=== PATIENT | male | born 1935 | race Caucasian/White ===

== ENCOUNTER 2017-01-17 20:18 | Inpatient (IN) ==
[2017-01-17] MEDS ORDERED: ONDANSETRON 4 MG/2 ML VIAL IV STA (20:49)
[2017-01-17] MEDS ORDERED: PANTOPRAZOLE 40 MG VIAL IV STA (20:49)
[2017-01-17] MEDS ORDERED: METOCLOPRAMIDE 10 MG/2 ML VIAL IV STA (20:49)
--- NOTE | 2017-01-17 20:55 | Emergency Department Note ---
Arrival - Arrival Chief Complaint: GI Bleed/Rectal ED Nursing Triage Note: C/O Lower GI bleeding-onset 0430 this morning. Pt was seen at [facility] and was sent for further evlauation. pt reports having multiple episodes of dark red stools/diarrhea. Mode of Arrival: Stretcher Limitations: No Limitations Source: Patient Time Seen by Provider: 01/17/17 20:48 - History of Present Illness HPI Narrative: This 81-year-old white male presents with a history of awakening at 430 this morning to of bright red bloody bowel movement followed by repeated small movements of similar consistency. He was seen at [facility] where he was further evaluated and because of long-standing lower GI bleed problems, Dr. Wilder, GI on-call was consulted. He advised transfer here for admission to the hospitalist service and they will see in consult. Currently during his interview he is having a bloody BM. Notable lab at [place] revealed a hematocrit of 43. Of note he has had significant diffuse abdominal pain associated with nausea, vomiting, and heartburn for the past several days. He denies any complaints of chest pain or shortness of breath in association with this. Despite this problem the patient has stable vital signs and is in no medical distress at this moment. Onset (ago): hour(s) (Patient presents 18 hours post onset of symptoms) Allergies/Adverse Reactions: Allergies Allergy/AdvReac Type Severity Reaction Status Date / Time codeine Allergy Unknown Unknown/Unable Verified 09/07/15 12:19 to obtain levofloxacin [From Levaquin] Allergy Unknown Unknown/Unable Verified 09/07/15 12 :19 to obtain Home Medications: Home Medications Medication Instructions Recorded Confirmed Type Digoxin 0.5 tablet PO DAILY 06/15/15 01/17/17 History Nitroglycerin Sl Tab [Nitrostat] 0.4 mg SL Q5M PRN 06/15/15 01/17/17 History Metoprolol Succinate Xl [Toprol Xl] 50 mg PO DAILY #30 tablet 06/17/15 01/17/17 Rx Methenamine Mandelate 1 gm PO BID 01/25/16 01/17/17 History Rosuvastatin [Crestor] 10 mg PO BEDTIME 01/25/16 01/17/17 History Pantoprazole Tab [Protonix Tab] 40 mg PO DAILY 08/24/17 08/24/17 History Review of System - Review of System 12 point system: reviewed and no additional remarkable complaints except as stated - Review of System Constitutional: Present: as per HPI Respiratory: Present: as per HPI Cardiovascular: Present: as per HPI Gastrointestinal: Present: as per HPI Medical,Surgical,& Family Hx - Medical History Cardio: History of: Cardiac Dysrhythmia (afib), CHF, CAD, Hypertension, [place], Pacemaker, Valvular Heart Disease, Cardiovascular Problems Neurology: No history of: Seizures HEENT: History of: Dental Problems Endocrine: History of: Dyslipidemia Respiratory: History of: Pneumonia Renal: History of: Renal Problems (hematuria) Genitourinary: History of: Prostate Problems (bph, cancer), Recurring Urinary Tract Infections Gastrointestinal: History of: GERD, Gastrointestinal Bleed, Hemorrhoids, Liver Problems, Polyps, Ulcerative Colitis, GI Problems (angiodysplagia of intestine) Musculoskeletal: History of: Back/Neck Problems (back surgery), Musculoskeletal Problems (arthritis) Hematology: History of: Anemia, Blood Disorders (thrombocytopenia) No history of: Blood Transfusion Reaction Other: History of: Cancer (prostate) No history of: Anesthesia Reactions - Surgical History Cardiac Surgeries: Sugical HX of: Cardiac Catheterization, Cardiac Surgery Patient Denies: Carotid Endarterectomy Thoracic Surgeries: Patient denies;: Organ Transplant HEENT Surgeries: Surgical HX of: Eye Surgery (cataracts) Patient denies: Carotid Endarterectomy Abdominal Surgeries: Surgical HX of: Colonoscopy, EGD, Hernia Repair Patient denies: Abdominal Surgery, Appendectomy, Cholecystectomy Reproductive Surgeries: Surgical HX of;: Prostate Surgery (prostatectomy) Orthopedic Surgeries: Surgical HX of;: Orthopedic Surgery (hand) - Social History Smoking Status: Former smoker Frequency of Alcohol Use: None Type of Drug Use: None Exam Physical Examination: GENERAL: Well developed, well nourished elderly white male in no acute distress. HEENT: Normocephalic. No trauma. Moist mucous membranes. EOMI. PERRLA. ENT NML NECK: Supple. No adenopathy. CARDIAC: Regular. No murmurs. Heart rate 60 CHEST: Clear to auscultation. No respiratory distress. O2 sat 97% ABDOMEN: Soft. Diffusely tender with hyperactive bowel sounds. red blood in bedside commode. EXTREMITIES: No trauma. Normal ROM. No pedal edema. SKIN: No diaphoresis. No rash. NEURO: Alert. Neuro intact no focal deficits. Vital Signs: Vital Signs Temperature 98.5 F 01/17/17 20:24 Pulse Rate 60 01/17/17 20:24 Respiratory Rate 16 01/17/17 20:24 Blood Pressure 144/74 01/17/17 20:24 O2 Sat by Pulse Oximetry 97 01/17/17 20:24 Course - Reevaluation(s) Reevaluation #1: Patient for admission and consultation with Dr. Livingston in the morning - Consultations Consultation #1: Discussed with hospitalist service who will admit for further evaluation treatment. Results - Labs Labs: Lab per [facility]: White blood cell count 10,700, hematocrit 43, sodium 144, potassium 4.8, BUN 17, creatinine 1.0, BNP 797 Disposition Clinical Impression: Lower GI bleed Case discussed with: patient Disposition: Still a Patient Condition: Guarded Time of Disposition: 21:00
[2017-01-17 21:43] LABS: Basophils % 0.2 % (0.0-0.8); Hematocrit 43.3 VOL% (42.0-52.0); Hemoglobin 13.4 GM/DL (14.0-18.0); Immature Granulocytes % 0.6 %; Immature Granulocytes Absolute 0.07 #; Lymphocytes # 0.8 10*3/uL (1.4-4.0); Mean Corpuscular HGB Conc 30.9 GM/DL (32-36); Mean Corpuscular Hemoglobin 27 PG (27-34); Mean Corpuscular Volume 88.5 FL (87-102); Mean Platelet Volume 11.3 FL (9.6-12.0); Monocytes # 0.9 10*3/uL (0.11-0.8); Monocytes % 7.5 % (1.7-12.7); Neutrophils # 10.1 10*3/uL (1.4-7.4); Neutrophils % 84.7 % (38.7-73.9); Platelet Count 143 T/CUMM (130-400); Red Blood Count 4.89 MC/CUMM (3.8-5.5); Red Cell Distribution Width 14.5 % (9.3-17.3); White Blood Count 11.9 T/CUMM (4-12)
[2017-01-17 22:04] LABS: Troponin I Only < 0.015 NG/ML (0.00-0.045)
[2017-01-17] MEDS ORDERED: METOCLOPRAMIDE 10 MG/2 ML VIAL ONE (22:16)
[2017-01-17] MEDS ORDERED: PANTOPRAZOLE 40 MG VIAL IV ONE (22:16)
[2017-01-17] MEDS ORDERED: ONDANSETRON 4 MG/2 ML VIAL ONE (22:17)
[2017-01-17] MEDS ORDERED: ACETAMINOPHEN 325 MG TABLET PO PRN (22:55)
--- NOTE | 2017-01-17 23:04 | Hospitalist History & Physical ---
Assessment and Plan (1) GI bleeding Status: Acute Current Visit: Yes (2) Hypertension Status: Acute Current Visit: Yes (3) History of coronary artery disease Status: Acute Current Visit: Yes (4) Paroxysmal atrial fibrillation Status: Acute Assessment and plan: Our plan for this patient will be admitting him to our service. Patient will be placed on a monitored bed. Patient appears very stable and does not require ICU admission. Will monitor H&H every 6 hours and if the need arises we will transfuse. Continue other home meds as appropriate. Will consult Dr. Livingston who is seen him in the past. Reevaluate patient in the morning and adjust plans as appropriate Current Visit: No History of Present Illness Chief complaint: GI bleed History of present illness: Mr. Gupta is a 81 year old male with past medical history significant for GI bleeds, coronary artery disease, atrial fibrillation and pacemaker placement who is in his normal state of health until this morning. Patient developed abdominal cramps and then he started having nausea vomiting and diarrhea. A little while later patient started passing blood through his stool. Patient had several bloody bowel movements. Patient went out to [facility] for further evaluation we will subsequently received him in the emergency room from [facility]. I was consulted to admit him to the emergency room Home Medications Medication Instructions Recorded Confirmed Type Digoxin 0.5 tablet PO DAILY 06/15/15 01/17/17 History Nitroglycerin Sl Tab [Nitrostat] 0.4 mg SL Q5M PRN 06/15/15 01/17/17 History Metoprolol Succinate Xl [Toprol Xl] 50 mg PO DAILY #30 tablet 06/17/15 01/17/17 Rx Methenamine Mandelate 1 gm PO BID 01/25/16 01/17/17 History Rosuvastatin [Crestor] 10 mg PO BEDTIME 01/25/16 01/17/17 History Pantoprazole Tab [Protonix Tab] 40 mg PO DAILY 01/17/17 01/17/17 History Allergies Allergy/AdvReac Type Severity Reaction Status Date / Time codeine Allergy Unknown Unknown/Unable Verified 09/07/15 12:19 to obtain levofloxacin [From Levaquin] Allergy Unknown Unknown/Unable Verified 09/07/15 12 :19 to obtain Medical,Surgical,& Family Hx - Medical History Cardio: History of: Cardiac Dysrhythmia (afib), CHF, CAD, Hypertension, [place], Pacemaker, Valvular Heart Disease, Cardiovascular Problems Neurology: No history of: Seizures HEENT: History of: Dental Problems Endocrine: History of: Dyslipidemia Respiratory: History of: Pneumonia Renal: History of: Renal Problems (hematuria) Genitourinary: History of: Prostate Problems (bph, cancer), Recurring Urinary Tract Infections Gastrointestinal: History of: GERD, Gastrointestinal Bleed, Hemorrhoids, Liver Problems, Polyps, Ulcerative Colitis, GI Problems (angiodysplagia of intestine) Musculoskeletal: History of: Back/Neck Problems (back surgery), Musculoskeletal Problems (arthritis) Hematology: History of: Anemia, Blood Disorders (thrombocytopenia) No history of: Blood Transfusion Reaction Other: History of: Cancer (prostate) No history of: Anesthesia Reactions - Surgical History Cardiac Surgeries: Sugical HX of: Cardiac Catheterization, Cardiac Surgery Patient Denies: Carotid Endarterectomy Thoracic Surgeries: Patient denies;: Organ Transplant HEENT Surgeries: Surgical HX of: Eye Surgery (cataracts) Patient denies: Carotid Endarterectomy Abdominal Surgeries: Surgical HX of: Colonoscopy, EGD, Hernia Repair Patient denies: Abdominal Surgery, Appendectomy, Cholecystectomy Reproductive Surgeries: Surgical HX of;: Prostate Surgery (prostatectomy) Orthopedic Surgeries: Surgical HX of;: Orthopedic Surgery (hand) - Family History Family History: Reports;: Family Heart Disease - Social History Smoking Status: Former smoker Frequency of Alcohol Use: None Type of Drug Use: None 12 point system: reviewed and no additional remarkable complaints except as stated Exam - Constitutional Vitals: Period Temp Pulse Resp BP Sys/Avalos Pulse Ox Last 24 Hr 98.4 F-98.5 F 60-60 16-16 144-144/74-74 97 General appearance: normal weight - Head Head exam: Present: normal inspection - Eye Eye exam: Present: EOMI Pupils: Present: NADIA - ENT ENT exam: Present: normal exam - Neck Neck exam: Present: normal inspection - Respiratory Respiratory exam: Present: clear to auscultation bilaterally - Cardiovascular Cardiovascular exam: Present: regular rate and rhythm - GI/Abdominal GI/Abdominal exam: Present: normal bowel sounds, tenderness (Mild diffuse noted) - Extremities Exam Extremities exam: Present: normal inspection - Back Exam Back exam: Present: normal inspection - Neurological Exam Neurological exam: Present: alert, oriented X3 - Psychiatric Psychiatric exam: Present: normal affect, normal mood Results - Labs CBC & BMP: 08/24/17 21:34 Labs: Labs from outside facility INR 1.3 PTT 32.5 urinalysis negative white blood cell count 10.78 hemoglobin 13.2 hematocrit 43.4 platelets 130 glucose 100 BUN 17 creatinine 1.0 sodium 144 potassium 4.8 chloride 29 calcium 8.7
--- NOTE | 2017-01-18 02:19 | EKG Report ---
Stationary ECG Study [facility] ER Test Date: 01/17/2017 9:25:17 PM Pat Name: PEDRO LUIS NEGRON Department: Room: 545 Gender: M Drip Pumper: : 1935 Requested by: Tanmay Cho Order Number: [id number] Holly MD: ADRIANA RANDALL Intervals [place] Rate: 60 P: 171 ME: 179 QRS: -79 QRSD: 160 T: 93 QT: 468 QTc: 468 Interpretive Statements ELECTRONIC ATRIAL PACEMAKER ELECTRONIC VENTRICULAR PACEMAKER ABNORMAL RHYTHM ECG Electronically Signed On 01-18-17 17:11:32 CDT by ADRIANA RANDALL [email or web address]
[2017-01-18 05:52] LABS: Hematocrit 40.8 VOL% (42.0-52.0); Hemoglobin 12.6 GM/DL (14.0-18.0)
[2017-01-18] MEDS: ONDANSETRON 4 MG/2 ML VIAL IV PRN (09:13)
[2017-01-18] MEDS: DIGOXIN 0.25 MG TABLET PO SCH (09:15)
[2017-01-18] MEDS: PANTOPRAZOLE 40 MG VIAL IV SCH ×2 (09:15→20:15)
[2017-01-18] MEDS: METOPROLOL SUCCINATE XL 50 MG TABLET PO SCH (09:16)
[2017-01-18] MEDS: METHENAMINE HIPPURATE 1 GM TABLET PO SCH ×2 (09:16→20:15)
[2017-01-18 09:55] LABS: Hematocrit 40.5 VOL% (42.0-52.0); Hemoglobin 12.5 GM/DL (14.0-18.0)
--- NOTE | 2017-01-18 12:10 | Gastrointestinal Consult Note ---
<ArashOlga Evangelist - Last Filed: 01/18/17 12:05> Assessment and Plan (1) GI bleeding Status: Acute Assessment and plan: 01/18-sudden onset of bright red rectal bleeding with clots with and without stool with associated lower abdominal pain and cramping on yesterday. No prior history of rectal GI bleeding in the past. Last colonoscopy approximately 1 year ago with notation of diverticulosis and polyp removal. 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 H&H is currently stable. Continue to monitor serial H&H and transfuse as necessary. Clear liquid diet. Abdominal x-ray is pending at present time. Plan an addendum to followed by Dr. Wilder (online merchandising manager for Dr. Livingston). Current Visit: Yes History of Present Illness Chief complaint: Rectal bleed History of present illness: Mr. Gupta is a 81 year old male who was admitted to the hospital following onset of bright red rectal bleeding on yesterday. Patient is a fairly good historian and his is at bedside as well. Information obtained from patient interview as well as chart review. Patient is a prior history of CAD, atrial fibrillation and pacemaker placement in the past. He is not on anticoagulants at this time. Patient states that on yesterday morning he began not feeling well with some lower abdominal pain and cramping he also had onset of nausea but denies any vomiting at that time. He went to the bathroom with urge to defecate and had a large liquid stool that was mixed in with a large amount of bright red blood. Patient states that he had too numerous to count stools following this, with each 1 of them containing bright red blood and at times clots. He also states that at times that he did have rectal bleeding without a bowel movement. Patient states he has had continued lower abdominal pain and cramping since that time that is not relieved by defecation. He presented to [place] [facility] emergency room and at that time he was referred to our facility. Patient has no prior history of GI bleeding like this in the past. 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 Patient is usually followed by Dr. Livingston however he is on vacation at this time. Patient's last known endoscopy was an EGD in August of last year with findings of gastritis. His last colonoscopy was in January of last year with findings of diverticulosis, polyp removal (pathology of tubular adenoma). He is noted to have a documented history of recurring anemia with iron replacement therapy in the past. H&H is currently stable at 12/40 and he has not required blood transfusion at this time. Patient states that he has had diverticulitis in the past and this pain is nothing similar to that. Home Medications Medication Instructions Recorded Confirmed Type Digoxin 0.5 tablet PO DAILY 06/15/15 01/18/17 History Nitroglycerin Sl Tab [Nitrostat] 0.4 mg SL Q5M PRN 06/15/15 01/18/17 History Metoprolol Succinate Xl [Toprol Xl] 50 mg PO DAILY #30 tablet 06/17/15 01/18/17 Rx Methenamine Mandelate 1 gm PO BID 01/25/16 01/18/17 History Rosuvastatin [Crestor] 10 mg PO BEDTIME 01/25/16 01/18/17 History Pantoprazole Tab [Protonix Tab] 40 mg PO DAILY 01/17/17 01/18/17 History Allergies Allergy/AdvReac Type Severity Reaction Status Date / Time codeine Allergy Unknown Unknown/Unable Verified 09/07/15 12:19 to obtain levofloxacin [From Levaquin] Allergy Unknown Unknown/Unable Verified 09/07/15 12 :19 to obtain Medical,Surgical,& Family Hx - Medical History Cardio: History of: Cardiac Dysrhythmia (afib), CHF, CAD, Hypertension, [place], Pacemaker, Valvular Heart Disease, Cardiovascular Problems Neurology: No history of: Seizures HEENT: History of: Dental Problems Endocrine: History of: Dyslipidemia Respiratory: History of: Pneumonia Renal: History of: Renal Problems (hematuria) Genitourinary: History of: Prostate Problems (bph, cancer), Recurring Urinary Tract Infections Gastrointestinal: History of: GERD, Gastrointestinal Bleed, Hemorrhoids, Liver Problems, Polyps, Ulcerative Colitis, GI Problems (angiodysplagia of intestine) Musculoskeletal: History of: Back/Neck Problems (back surgery), Musculoskeletal Problems (arthritis) Hematology: History of: Anemia, Blood Disorders (thrombocytopenia) No history of: Blood Transfusion Reaction Other: History of: Cancer (prostate) No history of: Anesthesia Reactions - Surgical History Cardiac Surgeries: Sugical HX of: Cardiac Catheterization, Cardiac Surgery Patient Denies: Carotid Endarterectomy Thoracic Surgeries: Patient denies;: Organ Transplant HEENT Surgeries: Surgical HX of: Eye Surgery (cataracts) Patient denies: Carotid Endarterectomy Abdominal Surgeries: Surgical HX of: Colonoscopy, EGD, Hernia Repair Patient denies: Abdominal Surgery, Appendectomy, Cholecystectomy Reproductive Surgeries: Surgical HX of;: Prostate Surgery (prostatectomy) Orthopedic Surgeries: Surgical HX of;: Orthopedic Surgery (hand) - Family History Family History: Reports;: Family Heart Disease - Social History Smoking Status: Former smoker Frequency of Alcohol Use: None Type of Drug Use: None 12 point system: reviewed and no additional remarkable complaints except as stated - Constitutional Constitutional: Present: as per HPI - EENT Eyes: Present: as per HPI Ears: Present: as per HPI Nose, mouth and throat: Present: as per HPI - Cardiovascular Cardiovascular: Present: as per HPI - Respiratory Respiratory: Present: as per HPI - Gastrointestinal Gastrointestinal: Present: as per HPI, abdominal pain, cramping, diarrhea, hematochezia - Genitourinary Genitourinary: Present: as per HPI - Musculoskeletal Musculoskeletal: Present: as per HPI - Neurological Neurological: Present: as per HPI - Psychiatric Psychiatric: Present: as per HPI - Endocrine Endocrine: Present: as per HPI - Hematologic/Lymphatic Hematologic/Lymphatic: Present: as per HPI Exam - Constitutional Vitals: Period Temp Pulse Resp BP Sys/Avalos Pulse Ox Last 24 Hr 97.4 F-98.5 F 60-101 16-18 137-157/69-89 96-97 General appearance: normal weight, no acute distress - Head Head exam: Present: normal inspection, normocephalic - Eye Eye exam: Present: other (Lids and conjunctivae are unremarkable). Absent: scleral icterus - ENT ENT exam: Present: normal exam, normal oropharynx - Neck Neck exam: Present: normal inspection - Respiratory Respiratory exam: Present: clear to auscultation bilaterally. Absent: rales, rhonchi, wheezes - Cardiovascular Cardiovascular exam: Present: regular rate and rhythm. Absent: diastolic murmur , JVD, systolic murmur - GI/Abdominal GI/Abdominal exam: Present: normal bowel sounds, tenderness (Right and left lower quadrant), soft. Absent: ascites, distended, mass, organomegaly - Extremities Exam Extremities exam: Present: normal inspection, full ROM - Back Exam Back exam: Present: normal inspection - Neurological Exam Neurological exam: Present: alert, oriented X3 - Psychiatric Psychiatric exam: Present: normal affect, normal mood - Skin Skin exam: Present: normal color, warm, dry Results - Labs CBC & BMP: 01/18/17 09:49 Lab Results: I have reviewed the past 24 hour labs <Edilson Wilder - Last Filed: 01/18/17 14:48> History of Present Illness Chief complaint: 3030 History of present illness: Mr. Gupta is a 81 year old male Exam - Constitutional Vitals: Period Temp Pulse Resp BP Sys/Avalos Pulse Ox Last 24 Hr 97.4 F-98.5 F 59-101 16-18 109-157/62-89 92-97 Results - Labs CBC & BMP: 01/18/17 09:49
[2017-01-18 12:31] LABS: INR 1.3; PT Patient Result 13.5 SECS
[2017-01-18] MEDS: SODIUM CHLORIDE 0.45% 1,000 ML IV SCH (13:20)
--- NOTE | 2017-01-18 13:27 | XRay Report ---
Abdomen, 2 views History is severe abdominal pain and diarrhea Several scattered air-filled loops small bowel measure up to 2.2 cm with scattered air-fluid levels. Small amount of air present in the colon No free air or organomegaly is seen Mild vascular calcifications present Impression: Scattered nonspecific air-fluid levels most likely mild ileus or gastroenteritis PROCEDURE INTERPRETED AT [facility] DEPARTMENT OF RADIOLOGY Final Report Signed by: Dr. Cristina Amaya
[2017-01-18] MEDS: HYDROCORTISONE 2.5% RECTAL CREAM 30 GM TUBE TOP SCH ×3 (13:47→20:18)
--- NOTE | 2017-01-18 15:25 | General Surgery Consult Note ---
Assessment and Plan (1) Abdominal pain Status: Acute Assessment and plan: I agree with CT scan of the abdomen and pelvis. The patient has a history of diverticulitis. We will place the patient on IV antibiotics tonight and a CT scan has been ordered for tomorrow. I will be around this weekend and rounding on the patient. There are no indications for operative intervention at this time today. Current Visit: Yes History of Present Illness Chief complaint: Abdominal pain with bloody diarrhea History of present illness: Mr. Gupta is a 81 year old male with a history of diverticular disease who was transferred here from [facility] for bloody diarrhea. His hemoglobins have been stable here. The patient denies recent antibiotic use. He has been hospitalized for diverticulitis before but this was many years ago. He did not require surgery. He comes in with abdominal pain mostly in the left lower quadrant and associated nausea and vomiting of nonbilious and nonbloody emesis. He states that his bowel movements have been bloody for the last day he has been having 4-5 bowel movements daily for the last 2 days. Again his abdominal pain is better since she has been in the hospital. Home Medications Medication Instructions Recorded Confirmed Type Digoxin 0.5 tablet PO DAILY 06/15/15 01/18/17 History Nitroglycerin Sl Tab [Nitrostat] 0.4 mg SL Q5M PRN 06/15/15 01/18/17 History Metoprolol Succinate Xl [Toprol Xl] 50 mg PO DAILY #30 tablet 06/17/15 01/18/17 Rx Methenamine Mandelate 1 gm PO BID 01/25/16 01/18/17 History Rosuvastatin [Crestor] 10 mg PO BEDTIME 01/25/16 01/18/17 History Pantoprazole Tab [Protonix Tab] 40 mg PO DAILY 01/17/17 01/18/17 History Allergies Allergy/AdvReac Type Severity Reaction Status Date / Time codeine Allergy Unknown Unknown/Unable Verified 09/07/15 12:19 to obtain levofloxacin [From Levaquin] Allergy Unknown Unknown/Unable Verified 09/07/15 12 :19 to obtain Medical,Surgical,& Family Hx - Medical History Cardio: History of: Cardiac Dysrhythmia (afib), CHF, CAD, Hypertension, FL, Pacemaker, Valvular Heart Disease, Cardiovascular Problems Neurology: No history of: Seizures HEENT: History of: Dental Problems Endocrine: History of: Dyslipidemia Respiratory: History of: Pneumonia Renal: History of: Renal Problems (hematuria) Genitourinary: History of: Prostate Problems (bph, cancer), Recurring Urinary Tract Infections Gastrointestinal: History of: GERD, Gastrointestinal Bleed, Hemorrhoids, Liver Problems, Polyps, Ulcerative Colitis, GI Problems (angiodysplagia of intestine) Musculoskeletal: History of: Back/Neck Problems (back surgery), Musculoskeletal Problems (arthritis) Hematology: History of: Anemia, Blood Disorders (thrombocytopenia) No history of: Blood Transfusion Reaction Other: History of: Cancer (prostate) No history of: Anesthesia Reactions - Surgical History Cardiac Surgeries: Sugical HX of: Cardiac Catheterization, Cardiac Surgery Patient Denies: Carotid Endarterectomy Thoracic Surgeries: Patient denies;: Organ Transplant HEENT Surgeries: Surgical HX of: Eye Surgery (cataracts) Patient denies: Carotid Endarterectomy Abdominal Surgeries: Surgical HX of: Colonoscopy, EGD, Hernia Repair Patient denies: Abdominal Surgery, Appendectomy, Cholecystectomy Reproductive Surgeries: Surgical HX of;: Prostate Surgery (prostatectomy) Orthopedic Surgeries: Surgical HX of;: Orthopedic Surgery (hand) - Family History Family History: Reports;: Family Heart Disease - Social History Smoking Status: Former smoker Frequency of Alcohol Use: None Type of Drug Use: None - Constitutional Constitutional: Present: as per HPI - EENT Nose, mouth and throat: Present: as per HPI - Cardiovascular Cardiovascular: Present: as per HPI - Respiratory Respiratory: Present: as per HPI - Gastrointestinal Gastrointestinal: Present: as per HPI - Genitourinary Genitourinary: Present: as per HPI - Musculoskeletal Musculoskeletal: Present: as per HPI - Neurological Neurological: Present: as per HPI - Endocrine Endocrine: Present: as per HPI Hematologic/Lymphatic: Present: as per HPI Exam - Constitutional Vitals: Period Temp Pulse Resp BP Sys/Avalos Pulse Ox Last 24 Hr 97.4 F-98.5 F 59-101 16-18 109-157/62-89 92-97 General appearance: no acute distress, over weight - Head Head exam: Present: normal inspection, normocephalic - Eye Eye exam: Present: EOMI Pupils: Present: NADIA - ENT ENT exam: Present: normal exam Mouth exam: Present: normal external inspection, normal voice - Neck Neck exam: Present: normal inspection, trachea midline - Respiratory Respiratory exam: Present: clear to auscultation bilaterally. Absent: accessory muscle use, chest wall tenderness - Cardiovascular Cardiovascular exam: Present: RRR. Absent: systolic murmur, tachycardia - GI/Abdominal GI/Abdominal exam: Present: guarding, tenderness (The patient has focal tenderness in the left lower quadrant with voluntary guarding. There is no diffuse peritoneal signs. Bowel sounds are hypoactive. The abdomen is not distended or tympanic.), soft. Absent: rebound - Extremities Exam Extremities exam: Present: normal inspection, normal capillary refill - Back Exam Back exam: Present: normal inspection - Neurological Exam Neurological exam: Present: alert, oriented X3 Speech: Present: normal - Skin Skin exam: Present: normal color, warm Results - Labs CBC & BMP: 01/18/17 09:49 - Diagnostic Findings Procedure: KUB x-ray: image reviewed by me, report reviewed by me (Nonspecific gas pattern on x-ray)
[2017-01-18] MEDS ORDERED: LOPERAMIDE 2 MG CAPSULE PO PRN (15:50)
--- NOTE | 2017-01-18 15:50 | Hospitalist Progress Note ---
Assessment and Plan (1) Ileus Status: Acute Current Visit: Yes (2) Abdominal pain Status: Acute Assessment and plan: GI has been consulted. Current Visit: Yes Qualifiers: Abdominal location: epigastric Qualified Code(s): R10.13 - Epigastric pain (3) Hypertension Status: Chronic Current Visit: Yes Qualifiers: Hypertension type: essential hypertension Qualified Code(s): I10 - Essential (primary) hypertension (4) History of coronary artery disease Status: Chronic Current Visit: Yes (5) Diarrhea Status: Acute Assessment and plan: Check stool for C. difficile. Ova and parasites. Current Visit: Yes Hospitalist: Subjective Interval history: Patient has complain of continued diarrhea. Follow-up KUB shows evidence of an ileus. No fevers or chills. Continue with IV fluids for this patient. Exam - Constitutional Vitals: Period Temp Pulse Resp BP Sys/Avalos Pulse Ox Last 24 Hr 97.4 F-98.5 F 59-101 16-18 109-157/62-89 92-97 General appearance: normal weight - Head Head exam: Present: normal inspection - Eye Eye exam: Present: EOMI - ENT ENT exam: Present: normal exam - Respiratory Respiratory exam: Present: clear to auscultation bilaterally - Cardiovascular Cardiovascular exam: Present: regular rate and rhythm - GI/Abdominal GI/Abdominal exam: Present: tenderness - Extremities Exam Extremities exam: Present: normal inspection, full ROM - Neurological Exam Neurological exam: Present: alert, oriented X3 - Psychiatric Psychiatric exam: Present: normal affect, normal mood - Skin Skin exam: Present: normal color Results - Labs CBC & BMP: 01/18/17 09:49
[2017-01-18 16:11] LABS: Hematocrit 40.9 VOL% (42.0-52.0); Hemoglobin 12.4 GM/DL (14.0-18.0)
[2017-01-18] MEDS: ERTAPENEM 1,000 MG in SODIUM CHLORIDE 0.9% 100 ML IV SCH (18:01)
[2017-01-18] MEDS: ROSUVASTATIN 10 MG TABLET PO SCH (20:15)
[2017-01-18 22:40] LABS: Hematocrit 39.8 VOL% (42.0-52.0); Hemoglobin 12.1 GM/DL (14.0-18.0)
[2017-01-19] MEDS: SODIUM CHLORIDE 0.45% 1,000 ML IV SCH ×4 (00:33→23:37)
[2017-01-19 06:25] LABS: Calcium 8.2 MG/DL (8.5-10.1); Osmolality,Calculated 280.3 MOS/KG (273-304); Potassium 3.6 MMOL/L (3.5-5.1)
[2017-01-19 06:27] LABS: Calcium 8.3 MG/DL (8.5-10.1); Osmolality,Calculated 278.4 MOS/KG (273-304); Potassium 3.6 MMOL/L (3.5-5.1)
[2017-01-19 07:10] LABS: Hematocrit 37.5 VOL% (42.0-52.0); Hemoglobin 11.8 GM/DL (14.0-18.0)
[2017-01-19 07:11] LABS: Basophils % 0.4 % (0.0-0.8); Eosinophils # 0.1 10*3/uL (0.0-0.87); Eosinophils % 1.1 % (0.00-10.9); Hematocrit 37.8 VOL% (42.0-52.0); Hemoglobin 11.8 GM/DL (14.0-18.0); Immature Granulocytes % 0.5 %; Immature Granulocytes Absolute 0.04 #; Lymphocytes # 0.9 10*3/uL (1.4-4.0); Lymphocytes % 11.7 % (21.2-54.2); Mean Corpuscular HGB Conc 31.2 GM/DL (32-36); Mean Corpuscular Hemoglobin 28 PG (27-34); Mean Corpuscular Volume 88.1 FL (87-102); Monocytes # 0.8 10*3/uL (0.11-0.8); Neutrophils # 5.7 10*3/uL (1.4-7.4); Neutrophils % 76.3 % (38.7-73.9); Platelet Count 112 T/CUMM (130-400); Red Blood Count 4.29 MC/CUMM (3.8-5.5); Red Cell Distribution Width 14.7 % (9.3-17.3); White Blood Count 7.5 T/CUMM (4-12)
--- NOTE | 2017-01-19 08:06 | CT Report ---
Exam: CT abdomen pelvis w con Date: 01/19/2017 744 AM Comparison: 11/07/2013 Indication: Abdominal pain Total DLP: 1068.0 mGy*cm Technical: Oral contrast was administered. Images were obtained from the lung bases to the iliac crest continuation through the pelvis with 100 cc of Omnipaque 350 with axial sagittal coronal imaging available for review. Dose reduction was performed with decreasing kv and mA and automated exposure Findings: Lung bases: Cardiac pacing device present. Mild cardiomegaly present. No obvious infiltrates or effusions with mild scarring in the left base posteriorly with a few tiny reticular nodular densities present medial left base. Liver and Spleen: Calcified granuloma changes present in the liver. The spleen is demonstrated with small granuloma change. Otherwise unremarkable Gallbladder and Pancreas: Unremarkable Adrenals: Unremarkable Kidneys: Small cyst and cortical scarring in the posterior aspect the left kidney measuring 1.3 cm. No obstructive uropathy present. Minimal perinephric stranding on the left and right kidney left greater than right Stomach: Incomplete distended with air-fluid and debris with no significant contrast in the stomach. Retroperitoneum: No enlarged lymph nodes. Aorta and IVC: No obvious acute abnormality. 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 Atherosclerotic plaque is present. The celiac hepatic and splenic arteries and SMA and inferior mesenteric artery are patent. The abdominal aorta measures up to 3.2 cm x 2.7 cm with mild aneurysmal dilatation. Atherosclerotic plaque extends into the iliac vessels bilaterally. Bowel and Mesentery: Diverticulosis changes are present. Some bowel wall edema present in the rectosigmoid colon. No evidence of appendicitis. No obvious defined abscess collection present. Pelvis: Bladder: Incompletely distended with fluid and contrast. The ureters are unremarkable. Fluid: No free fluid identified. Lymph nodes: Fat-containing inguinal canal hernias left greater than right. No obvious adenopathy. Pelvic organs: Mild prostate hypertrophy with small prostate calcifications. Osseous structures: Vacuum phenomena and disc space narrowing at L4-5 and L5-S1 with degenerative spondylosis changes thoracolumbar spine. Impression: 1. Findings suggest component of colitis / component diverticulitis. Bowel wall thickening in the rectosigmoid colon without a defined abscess collection. Extensive diverticulosis changes are present. No significant contrast is present in the rectosigmoid colon. No evidence of pneumoperitoneum 2. Facet arthropathy lumbosacral spine and discogenic disease at L4-5 and L5-S1 3. Bilateral fat-containing inguinal canal hernias 4. Vascular calcification aorta iliac vessels with mild aneurysmal dilatation of the infrarenal abdominal aorta measuring up to 3.2 cm. PROCEDURE INTERPRETED AT [facility], [place] DEPARTMENT OF RADIOLOGY Final Report Signed by: Dr. Bird Echevarria
[2017-01-19] MEDS: PANTOPRAZOLE 40 MG VIAL IV SCH ×2 (09:10→20:00)
[2017-01-19] MEDS: DIGOXIN 0.25 MG TABLET PO SCH (09:11)
[2017-01-19] MEDS: METOPROLOL SUCCINATE XL 50 MG TABLET PO SCH (09:11)
[2017-01-19] MEDS: METHENAMINE HIPPURATE 1 GM TABLET PO SCH ×2 (09:13→20:00)
[2017-01-19] MEDS: HYDROCORTISONE 2.5% RECTAL CREAM 30 GM TUBE TOP SCH ×4 (09:13→20:00)
--- NOTE | 2017-01-19 10:59 | Hospitalist Progress Note ---
Assessment and Plan (1) GI bleeding Status: Acute Assessment and plan: He was admitted to the hospital with rectal bleeding. He states that he has a previous history of diverticulitis although the discomfort experienced this time is significantly different than the pain from his previous diverticulitis. Gastroenterology has been consulted. Current Visit: Yes (2) Abdominal pain Status: Acute Assessment and plan: Improved. Current Visit: Yes Qualifiers: Abdominal location: epigastric Qualified Code(s): R10.13 - Epigastric pain Hospitalist: Subjective Interval history: He feels somewhat better today. He is not experiencing abdominal pain. He has not experienced any recurrent episodes of rectal bleeding. Exam - Constitutional Vitals: Period Temp Pulse Resp BP Sys/Avalos Pulse Ox Last 24 Hr 96.5 F-98.2 F 58-88 18-20 104-143/62-85 92-98 General appearance: no acute distress - Head Head exam: Present: normal inspection - Neck Neck exam: Present: normal inspection - Respiratory Respiratory exam: Present: clear to auscultation bilaterally - Cardiovascular Cardiovascular exam: Present: regular rate and rhythm - GI/Abdominal GI/Abdominal exam: Present: normal bowel sounds, soft, other (Nontender with no palpable masses or hepatosplenomegaly.) - Extremities Exam Extremities exam: Present: normal inspection - Neurological Exam Neurological exam: Present: alert, oriented X3 - Skin Skin exam: Present: normal color, warm, intact Results - Labs CBC & BMP: 01/19/17 05:13 01/19/17 05:13
--- NOTE | 2017-01-19 15:17 | Cardiology Consult Note ---
Assessment and Plan (1) Biventricular cardiac pacemaker in situ Status: Chronic Current Visit: Yes (2) Paroxysmal atrial fibrillation Status: Chronic Current Visit: No (3) GI bleeding Status: Acute Current Visit: Yes (4) Hypertension Status: Chronic Current Visit: Yes Qualifiers: Hypertension type: essential hypertension Qualified Code(s): I10 - Essential (primary) hypertension (5) History of coronary artery disease Status: Chronic Current Visit: Yes (6) Abdominal pain Status: Acute Current Visit: Yes Qualifiers: Abdominal location: epigastric Qualified Code(s): R10.13 - Epigastric pain History of Present Illness - Data of Consult Patient: known to practice within the last 3 years Consult date: 01/19/17 Requesting Physician: Mario Mcknight - Consult Narrative Reason for consult: evaluate PM History of present illness: Multimedia Journalist: Dr. Browne. Mr. Gupta is a 81 year old male with a history of ischemic cardiomyopathy that responded to biventricular pacemaker implantation with ejection fraction normalizing to 55%, coronary artery disease (CABG NANCE-LAD, SVG-RCA & Cx, PCI with Synergy 3.5x20 to SVG-RCA 05/2015, PCI with Ion 3x16 mm stent to proximal LAD 04/2011), paroxysmal atrial fibrillation, hypertension. Her most recent PCI was complicated by postoperative GI bleeding requiring cessation of Plavix. He is also had a history of hematuria and thrombocytopenia. He was most recently seen by Dr. Browne in clinic on January 04, 2017. Most recent device interrogation was in November 2016. Echocardiogram performed July demonstrated ejection fraction 55%, moderate tricuspid regurgitation, mild mitral regurgitation, pulmonary artery pressure of approximately 42 mmHg. The patient was admitted with abdominal discomfort and possible GI bleeding which appears to be a chronic and ongoing problem for the patient. I am consulted out of concern that his pacemaker is "malfunctioning". There are reports of a heart rate in the 30s last night, but I do not see these in the chart. He has not been experiencing any chest pain, shortness of breath. He has not had lower extremity edema, orthopnea, presyncope or syncope. He has had some bloody stools, some nausea but no yesica emesis. He continues to have abdominal discomfort but overall is improving. He is receiving IV fluids at 75 cc an hour but has not been eating. Impression and plan: 1. Coronary artery disease-appears to be clinically stable. 2. History of ischemic cardiomyopathy, now normalized. He is not in heart failure on exam. 3. Status post biventricular pacemaker ICD implantation-there is a question that this could be malfunctioning. We will have interrogated tomorrow. There is appropriate function on recent testing in the clinic. 4. GI bleeding-this appears to be related to some diverticulitis and he is being treated for this. Overall this is improving. 5. Hypertension-chronic, stable. CC: Mario Mcknight - Home Medications and Allergies Home Medications: Home Medications Medication Instructions Recorded Confirmed Type Digoxin 0.5 tablet PO DAILY 06/15/15 01/18/17 History Nitroglycerin Sl Tab [Nitrostat] 0.4 mg SL Q5M PRN 06/15/15 01/18/17 History Metoprolol Succinate Xl [Toprol Xl] 50 mg PO DAILY #30 tablet 06/17/15 01/18/17 Rx Methenamine Mandelate 1 gm PO BID 01/25/16 01/18/17 History Rosuvastatin [Crestor] 10 mg PO BEDTIME 01/25/16 01/18/17 History Pantoprazole Tab [Protonix Tab] 40 mg PO DAILY 01/17/17 01/18/17 History Allergies/Adverse Reactions: Allergies Allergy/AdvReac Type Severity Reaction Status Date / Time codeine Allergy Unknown Unknown/Unable Verified 09/07/15 12:19 to obtain levofloxacin [From Levaquin] Allergy Unknown Unknown/Unable Verified 09/07/15 12 :19 to obtain 12 point system: reviewed and no additional remarkable complaints except as stated Medical,Surgical,& Family Hx - Medical History Cardio: History of: Cardiac Dysrhythmia (afib), CHF, CAD, Hypertension, FL, Pacemaker, Valvular Heart Disease, Cardiovascular Problems Neurology: No history of: Seizures HEENT: History of: Dental Problems Endocrine: History of: Dyslipidemia Respiratory: History of: Pneumonia Renal: History of: Renal Problems (hematuria) Genitourinary: History of: Prostate Problems (bph, cancer), Recurring Urinary Tract Infections Gastrointestinal: History of: GERD, Gastrointestinal Bleed, Hemorrhoids, Liver Problems, Polyps, Ulcerative Colitis, GI Problems (angiodysplagia of intestine) Musculoskeletal: History of: Back/Neck Problems (back surgery), Musculoskeletal Problems (arthritis) Hematology: History of: Anemia, Blood Disorders (thrombocytopenia) No history of: Blood Transfusion Reaction Other: History of: Cancer (prostate) No history of: Anesthesia Reactions - Surgical History Cardiac Surgeries: Sugical HX of: Cardiac Catheterization, Cardiac Surgery Patient Denies: Carotid Endarterectomy Thoracic Surgeries: Patient denies;: Organ Transplant HEENT Surgeries: Surgical HX of: Eye Surgery (cataracts) Patient denies: Carotid Endarterectomy Abdominal Surgeries: Surgical HX of: Colonoscopy, EGD, Hernia Repair Patient denies: Abdominal Surgery, Appendectomy, Cholecystectomy Reproductive Surgeries: Surgical HX of;: Prostate Surgery (prostatectomy) Orthopedic Surgeries: Surgical HX of;: Orthopedic Surgery (hand) - Family History Family History: Reports;: Family Heart Disease - Social History Smoking Status: Former smoker Frequency of Alcohol Use: None Type of Drug Use: None Marital Status: Lives With:: Spouse Functional capacity: independent ambulation Physical Examination Vital Signs Temp Pulse Resp BP Pulse Ox 98.4 F 60 16 144/74 97 01/17/17 20:24 01/17/17 20:24 01/17/17 20:24 01/17/17 20:24 01/17/17 20:24 Exam: General appearance: normal weight, no acute distress - Head Head exam: Present: normal inspection, normocephalic, atraumatic. Absent: hematoma, laceration - Eye Eye exam: Present: EOMI, arcus senilis. Absent: conjunctival injection, nystagmus, periorbital swelling, scleral icterus, laceration to eyelids Pupils: Present: PERRL. Absent: constricted, dilated, fixed, irregular, unequal - ENT ENT exam: Present: normal exam, normal external ear exam - Neck Neck exam: Present: normal inspection. Absent: lymphadenopathy, meningismus, tenderness, thyromegaly - Respiratory Respiratory exam: Present: clear to auscultation bilaterally. Absent: accessory muscle use, chest wall tenderness - Cardiovascular Cardiovascular exam: Present: regular rate and rhythm. Absent: carotid bruit, gallop, JVD, rubs - GI/Abdominal GI/Abdominal exam: Present: Mild diffuse tenderness worse in the lower quadrants. Absent: distended, firm, guarding, hernia, mass, rebound. - Extremities Exam Extremities exam: Present: normal inspection, normal capillary refill. Absent: calf tenderness, edema - Back Exam Back exam: Present: normal inspection. Absent: muscle spasm, vertebral tenderness - Neurological Exam Neurological exam: Present: alert, oriented X3, grossly intact without resting or intention tremor - Psychiatric Psychiatric exam: Present: normal affect, normal mood - Skin Skin exam: Present: normal color, warm, dry, intact. Absent: cyanosis, diaphoretic, rash, urticaria Result/EKG - Labs CBC & BMP: 01/19/17 05:13 01/19/17 05:13 Lab Results: I have reviewed the past 24 hour labs Labs: Laboratory Results - last 24 hr 01/18/17 01/18/17 01/19/17 15:35 22:18 05:13 WBC RBC Hgb 12.4 L 12.1 L 11.8 L Hct 40.9 L 39.8 L 37.5 L MCV MCH MCHC RDW Plt Count MPV Neut % (Auto) Lymph % (Auto) [place]royo % (Auto) Eos % (Auto) Baso % (Auto) Neut # (Auto) Lymph # (Auto) [place] # (Auto) Eos # (Auto) Baso # (Auto) Immature Gran % Nucleated RBC % Immature Gran # Nucleated RBCs # Immature Plt Fraction Sodium Potassium Chloride Carbon Dioxide Anion Gap BUN Creatinine GFR Calculation BUN/Creatinine Ratio Glucose Calculated Osmolality Calcium Magnesium 01/19/17 01/19/17 01/19/17 05:13 05:13 05:13 WBC 7.5 D RBC 4.29 Hgb 11.8 L Hct 37.8 L MCV 88.1 MCH 28 MCHC 31.2 L RDW 14.7 Plt Count 112 L D MPV 13.0 H Neut % (Auto) 76.3 H Lymph % (Auto) 11.7 L [place] % (Auto) 10.0 Eos % (Auto) 1.1 Baso % (Auto) 0.4 Neut # (Auto) 5.7 Lymph # (Auto) 0.9 L [place]o # (Auto) 0.8 Eos # (Auto) 0.1 Baso # (Auto) 0.0 Immature Gran % 0.5 Nucleated RBC % 0.0 Immature Gran # 0.04 Nucleated RBCs # 0.00 Immature Plt Fraction 0.0 Sodium 141 140 Potassium 3.6 3.6 Chloride 106 106 Carbon Dioxide 26 27 Anion Gap 12.6 10.6 BUN 15 16 Creatinine 1.00 1.00 GFR Calculation 86 86 BUN/Creatinine Ratio 15.00 16.00 Glucose 83 87 Calculated Osmolality 280.3 278.4 Calcium 8.2 L 8.3 L Magnesium 2.0 - Diagnostic Findings Procedure: CT Abdomen and Pelvis: report reviewed by me - EKG EKG results: interpreted by me (electronical atrial and ventricular pacing)
[2017-01-19] MEDS: ERTAPENEM 1,000 MG in SODIUM CHLORIDE 0.9% 100 ML IV SCH (16:47)
--- NOTE | 2017-01-19 18:46 | General Surgery Progress Note ---
Assessment and Plan (1) Abdominal pain Status: Acute Assessment and plan: The patient has significant colitis on imaging and on exam. We will continue antibiotics and monitor his response clinically. Advance to low residue diet Current Visit: Yes Qualifiers: Abdominal location: epigastric Qualified Code(s): R10.13 - Epigastric pain Subjective Patient reports: Present: no new complaints, feels better, still having pain, pain is less, tolerating liquids well, diarrhea, afebrile. Absent: blood in stool, nausea, vomiting Exam - Constitutional Vitals: Period Temp Pulse Resp BP Sys/Avalos Pulse Ox Last 24 Hr 96.5 F-98.2 F 58-88 18-20 104-144/64-85 94-99 General appearance: no acute distress, over weight - Head Head exam: Present: normal inspection, normocephalic - Eye Eye exam: Present: EOMI. Absent: scleral icterus Pupils: Present: NADIA - ENT ENT exam: Present: normal exam Mouth exam: Present: normal external inspection, normal voice - Neck Neck exam: Present: normal inspection, trachea midline - Respiratory Respiratory exam: Present: clear to auscultation bilaterally. Absent: accessory muscle use, chest wall tenderness - Cardiovascular Cardiovascular exam: Present: RRR. Absent: systolic murmur, tachycardia - GI/Abdominal GI/Abdominal exam: Present: tenderness (There is tenderness focally in the left lower quadrant but is improved from yesterday), soft. Absent: rebound - Extremities Exam Extremities exam: Present: normal inspection, normal capillary refill - Back Exam Back exam: Present: normal inspection - Neurological Exam Neurological exam: Present: alert, oriented X3 Speech: Present: normal - Skin Skin exam: Present: normal color, warm Results - Labs CBC & BMP: 01/19/17 05:13 01/19/17 05:13 - Diagnostic Findings Procedure: CT Abdomen and Pelvis: image reviewed by me, report reviewed by me ( Colitis at the sigmoid and rectum junction)
[2017-01-19] MEDS: ONDANSETRON 4 MG/2 ML VIAL IV PRN (19:55)
[2017-01-19] MEDS: ROSUVASTATIN 10 MG TABLET PO SCH (20:00)
[2017-01-20] MEDS: SODIUM CHLORIDE 0.45% 1,000 ML IV SCH (03:38)
[2017-01-20] MEDS: PANTOPRAZOLE 40 MG VIAL IV SCH ×2 (08:33→21:34)
[2017-01-20] MEDS: METOPROLOL SUCCINATE XL 50 MG TABLET PO SCH (08:34)
[2017-01-20] MEDS: METHENAMINE HIPPURATE 1 GM TABLET PO SCH ×2 (08:34→21:34)
[2017-01-20] MEDS: DIGOXIN 0.25 MG TABLET PO SCH (08:34)
[2017-01-20] MEDS: HYDROCORTISONE 2.5% RECTAL CREAM 30 GM TUBE TOP SCH ×4 (09:56→21:35)
--- NOTE | 2017-01-20 12:50 | Hospitalist Progress Note ---
Assessment and Plan (1) Ileus Status: Acute Current Visit: Yes (2) Abdominal pain Status: Acute Assessment and plan: GI has been consulted. Abdominal discomfort is improving. Hemodynamics have been stable. Current Visit: Yes Qualifiers: Abdominal location: epigastric Qualified Code(s): R10.13 - Epigastric pain (3) Hypertension Status: Chronic Current Visit: Yes Qualifiers: Hypertension type: essential hypertension Qualified Code(s): I10 - Essential (primary) hypertension (4) History of coronary artery disease Status: Chronic Current Visit: Yes (5) Diarrhea Status: Acute Assessment and plan: Check stool for C. difficile. Ova and parasites. No parasites. No C. difficile. Current Visit: Yes Hospitalist: Subjective Interval history: Patient is resting comfortably. States his abdominal pain is improving. Still has some diarrhea. Hemodynamics have been stable. Hematocrit is stable. Exam - Constitutional Vitals: Period Temp Pulse Resp BP Sys/Avalos Pulse Ox Last 24 Hr 97 F-98.4 F 59-81 18-20 113-168/68-80 94-96 General appearance: normal weight - Head Head exam: Present: normal inspection - Eye Eye exam: Present: EOMI - Neck Neck exam: Present: normal inspection - Respiratory Respiratory exam: Present: clear to auscultation bilaterally - Cardiovascular Cardiovascular exam: Present: regular rate and rhythm - GI/Abdominal GI/Abdominal exam: Present: normal bowel sounds - Extremities Exam Extremities exam: Present: normal inspection - Back Exam Back exam: Present: normal inspection - Neurological Exam Neurological exam: Present: alert, oriented X3, CN II-XII intact - Psychiatric Psychiatric exam: Present: normal affect Results - Labs CBC & BMP: 01/19/17 05:13 01/19/17 05:13
--- NOTE | 2017-01-20 14:15 | General Surgery Progress Note ---
Assessment and Plan (1) Abdominal pain Status: Acute Assessment and plan: Transition to oral antibiotics today. I have written for Augmentin and Flagyl. Repeat CBC tomorrow. Possible discharge home tomorrow if doing well. Current Visit: Yes Qualifiers: Abdominal location: epigastric Qualified Code(s): R10.13 - Epigastric pain Subjective Patient reports: Present: no new complaints, feels better, still having pain, pain is less, flatus, bowel movement, diarrhea, blood in stool, afebrile. Absent: nausea, vomiting Narrative: The patient tolerated a low residue diet with no nausea or vomiting. He still having some small amount of bleeding in his diarrhea but much better than when he came in. Exam - Constitutional Vitals: Period Temp Pulse Resp BP Sys/Avalos Pulse Ox Last 24 Hr 97 F-98.4 F 59-81 18-20 113-168/68-80 94-96 General appearance: no acute distress, over weight - Head Head exam: Present: normal inspection, normocephalic - Eye Eye exam: Present: EOMI Pupils: Present: NADIA - ENT ENT exam: Present: normal exam Mouth exam: Present: normal external inspection, normal voice - Neck Neck exam: Present: normal inspection, trachea midline - Respiratory Respiratory exam: Present: clear to auscultation bilaterally. Absent: accessory muscle use, chest wall tenderness - Cardiovascular Cardiovascular exam: Present: RRR. Absent: systolic murmur, tachycardia - GI/Abdominal GI/Abdominal exam: Present: normal bowel sounds, tenderness (Tenderness is decreased compared to yesterday), soft. Absent: rebound - Extremities Exam Extremities exam: Present: normal inspection, normal capillary refill - Back Exam Back exam: Present: normal inspection - Neurological Exam Neurological exam: Present: alert, oriented X3 Speech: Present: normal - Skin Skin exam: Present: normal color, warm Results - Labs CBC & BMP: 01/19/17 05:13 01/19/17 05:13
[2017-01-20] MEDS: AMOXICILLIN/CLAV 875 MG TABLET PO SCH (15:59)
[2017-01-20] MEDS: metroNIDAZOLE 500 MG TABLET PO SCH ×2 (15:59→21:34)
--- NOTE | 2017-01-20 16:38 | Cardiology Progress Note ---
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 Browne. Summary: Mr. Gupta is a 81 year old male with a history of ischemic cardiomyopathy that responded to biventricular pacemaker implantation with ejection fraction normalizing to 55%, coronary artery disease (CABG NANCE-LAD, SVG-RCA & Cx, PCI with Synergy 3.5x20 to SVG-RCA 05/2015, PCI with Ion 3x16 mm stent to proximal LAD 04/2011), paroxysmal atrial fibrillation, hypertension. Her most recent PCI was complicated by postoperative GI bleeding requiring cessation of Plavix. He is also had a history of hematuria and thrombocytopenia. He was most recently seen by Dr. Browne in clinic on January 04, 2017. Most recent device interrogation was in November 2016. Echocardiogram performed July demonstrated ejection fraction 55%, moderate tricuspid regurgitation, mild mitral regurgitation, pulmonary artery pressure of approximately 42 mmHg. The patient was admitted with abdominal discomfort and possible GI bleeding which appears to be a chronic and ongoing problem for the patient. I am consulted out of concern that his pacemaker is "malfunctioning". There are reports of a heart rate in the 30s last night, but I do not see these in the chart. January 20, 2017: We were consulted regarding possible pacemaker malfunction. I have reviewed the strips with the device [employer] representative. The patient has a function that causes auto interrogation and evaluation every 16 hours and will temporarily show some of these changes. Recent pacemaker interrogation shows appropriate function. I believe the device is functioning appropriately. Patient is not having any chest pain, shortness of breath. His abdominal symptoms are slowly improving. I will sign off, please feel free to consult for new or dynamic cardiac issues. Exam (Progress Note) - Constitutional Vitals: Period Temp Pulse Resp BP Sys/Avalos Pulse Ox Last 24 Hr 97 F-98.4 F 59-81 18-20 113-168/69-80 94-96 Exam: General appearance: normal weight, no acute distress - Head Head exam: Present: normal inspection, normocephalic, atraumatic. Absent: hematoma, laceration - Eye Eye exam: Present: EOMI. Absent: conjunctival injection, nystagmus, periorbital swelling, scleral icterus, laceration to eyelids Pupils: Present: PERRL. Absent: constricted, dilated, fixed, irregular, unequal - ENT ENT exam: Present: normal exam, normal external ear exam - Neck Neck exam: Present: normal inspection. Absent: lymphadenopathy, meningismus, tenderness, thyromegaly - Respiratory Respiratory exam: Present: clear to auscultation bilaterally. Absent: accessory muscle use, chest wall tenderness - Cardiovascular Cardiovascular exam: Present: regular rate and rhythm. Absent: carotid bruit, gallop, JVD, rubs - GI/Abdominal GI/Abdominal exam: Present: Mildly tender throughout, soft, no rebound - Extremities Exam Extremities exam: Present: normal inspection, normal capillary refill. Absent: calf tenderness, edema - Back Exam Back exam: Present: normal inspection. Absent: muscle spasm, vertebral tenderness - Neurological Exam Neurological exam: Present: alert, oriented X3, grossly intact without resting or intention tremor - Psychiatric Psychiatric exam: Present: normal affect, normal mood - Skin Skin exam: Present: normal color, warm, dry, intact. Absent: cyanosis, diaphoretic, rash, urticaria Result/EKG - Labs CBC & BMP: 01/19/17 05:13 01/19/17 05:13 Lab Results: I have reviewed the past 24 hour labs
[2017-01-20] MEDS: ROSUVASTATIN 10 MG TABLET PO SCH (21:34)
[2017-01-21] MEDS: AMOXICILLIN/CLAV 875 MG TABLET PO SCH ×2 (03:42→15:24)
[2017-01-21 05:58] LABS: Basophils % 0.3 % (0.0-0.8); Eosinophils # 0.1 10*3/uL (0.0-0.87); Eosinophils % 1.1 % (0.00-10.9); Hematocrit 37.1 VOL% (42.0-52.0); Hemoglobin 11.9 GM/DL (14.0-18.0); Immature Granulocytes % 0.3 %; Immature Granulocytes Absolute 0.02 #; Lymphocytes # 0.7 10*3/uL (1.4-4.0); Lymphocytes % 11.8 % (21.2-54.2); Mean Corpuscular HGB Conc 32.1 GM/DL (32-36); Mean Corpuscular Hemoglobin 28 PG (27-34); Mean Corpuscular Volume 85.9 FL (87-102); Mean Platelet Volume 12.4 FL (9.6-12.0); Monocytes # 0.7 10*3/uL (0.11-0.8); Monocytes % 11.5 % (1.7-12.7); Neutrophils # 4.6 10*3/uL (1.4-7.4); Platelet Count 115 T/CUMM (130-400); Red Blood Count 4.32 MC/CUMM (3.8-5.5); Red Cell Distribution Width 14.2 % (9.3-17.3); White Blood Count 6.2 T/CUMM (4-12)
[2017-01-21] MEDS: metroNIDAZOLE 500 MG TABLET PO SCH ×3 (08:25→21:07)
[2017-01-21] MEDS: METHENAMINE HIPPURATE 1 GM TABLET PO SCH ×2 (08:26→21:07)
[2017-01-21] MEDS: DIGOXIN 0.25 MG TABLET PO SCH (08:26)
[2017-01-21] MEDS: PANTOPRAZOLE 40 MG VIAL IV SCH ×2 (08:42→21:06)
[2017-01-21] MEDS: METOPROLOL SUCCINATE XL 50 MG TABLET PO SCH (08:42)
[2017-01-21] MEDS: HYDROCORTISONE 2.5% RECTAL CREAM 30 GM TUBE TOP SCH ×4 (08:42→21:07)
--- NOTE | 2017-01-21 09:56 | Hospitalist Progress Note ---
Assessment and Plan (1) Abdominal pain Status: Acute Assessment and plan: this has improved. CT showed a component of colitis / component diverticulitis. Bowel wall thickening in the rectosigmoid colon without a definedabscess collection. Extensive diverticulosis changes are present. Stool studies showed negative C. difficile, 4+ blood Plan Continue antibiotics For possible dc in am. Current Visit: Yes Qualifiers: Abdominal location: epigastric Qualified Code(s): R10.13 - Epigastric pain (2) Hypertension Status: Chronic Assessment and plan: stable Current Visit: Yes Qualifiers: Hypertension type: essential hypertension Qualified Code(s): I10 - Essential (primary) hypertension (3) GI bleeding Status: Acute Assessment and plan: Most likely due to diverticulosis, patient also has a history of polyp removal. H/H is stable. Appreciates GI and Surgery's input. 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 Follow recommendations Current Visit: Yes (5) Paroxysmal atrial fibrillation Status: Chronic Assessment and plan: rate is controlled. Follow cardiology's recommendations Current Visit: No Hospitalist: Subjective Interval history: Patient feels better this am. He states he no longer bleeds in his stool. Exam - Constitutional Vitals: Period Temp Pulse Resp BP Sys/Avalos Pulse Ox Last 24 Hr 97 F-98.7 F 59-62 18-20 113-156/71-89 94-99 General appearance: no acute distress - Head Head exam: Present: normal inspection - Respiratory Respiratory exam: Present: clear to auscultation bilaterally - Cardiovascular Cardiovascular exam: Present: regular rate and rhythm - GI/Abdominal GI/Abdominal exam: Present: normal bowel sounds - Extremities Exam Extremities exam: Present: normal inspection - Neurological Exam Neurological exam: Present: alert, oriented X3 Results - Labs CBC & BMP: 01/21/17 05:13 01/19/17 05:13 Lab Results: I have reviewed the past 24 hour labs
--- NOTE | 2017-01-21 12:14 | General Surgery Progress Note ---
Assessment and Plan (1) Abdominal pain Status: Acute Assessment and plan: Patient is recovering well from his colitis. He is on oral antibiotics. No surgical intervention is indicated. Defer to medical team for further treatment and discharge planning. Please call back with any further questions. Current Visit: Yes Qualifiers: Abdominal location: epigastric Qualified Code(s): R10.13 - Epigastric pain Subjective Patient reports: Present: no new complaints, feels better, still having pain, pain is less, flatus. Absent: no bowel movement, blood in stool, nausea, vomiting Narrative: Patient has not had a bowel movement since admission he is concerned about this. He is tolerating his diet with no nausea or vomiting. Exam - Constitutional Vitals: Period Temp Pulse Resp BP Sys/Avalos Pulse Ox Last 24 Hr 97.1 F-98.7 F 59-69 18-20 138-156/71-89 95-99 General appearance: no acute distress, over weight - Head Head exam: Present: normal inspection, normocephalic - Eye Eye exam: Present: EOMI. Absent: scleral icterus Pupils: Present: NADIA - ENT ENT exam: Present: normal exam - Neck Neck exam: Present: normal inspection, trachea midline - Respiratory Respiratory exam: Present: clear to auscultation bilaterally. Absent: accessory muscle use, chest wall tenderness - Cardiovascular Cardiovascular exam: Present: RRR. Absent: systolic murmur, tachycardia - GI/Abdominal GI/Abdominal exam: Present: tenderness (There is decreased tenderness present in the left lower quadrant), soft. Absent: rebound - Extremities Exam Extremities exam: Present: normal inspection, normal capillary refill - Back Exam Back exam: Present: normal inspection - Neurological Exam Neurological exam: Present: alert, oriented X3 Speech: Present: normal - Skin Skin exam: Present: normal color, warm Results - Labs CBC & BMP: 01/21/17 05:13 01/19/17 05:13
[2017-01-21 12:33] LABS: Apearance,Urine CLEAR (Clear); Bilirubin,Urine Negative (Negative); Blood, Urine Moderate mg/dL (Negative); Glucose,Urine (UA) Negative (Negative); Ketones,Urine Negative (Negative); Mucus,Urine Occasional /LPF (Occasional); Nitrite,Urine Negative (Negative); Protein,Urine Negative; RBC,Urine 20 /HPF (0-4); Urine Color Yellow (Yellow); Urine Specific Gravity 1.017 (1.001-1.035); Urine Urobilinogen < 2.0 EU/DL (0.2-1.0); WBC,Urine 26 /HPF (0-6)
--- NOTE | 2017-01-21 14:59 | Gastrointestinal Progress Note ---
Assessment and Plan (1) Colitis Status: Acute Assessment and plan: This patient does have a history of diverticulosis discovered on colonoscopy approximately a year ago. His white blood cell count on admission was 11.9 with pain in the left lower quadrant and improvement to a white blood cell count of 6.2 with antibiotic therapy. There is been a low-grade bleed present. While this could be due to diverticular bleeding or colitis this may also have represented an ischemic colitis with bacterial translocation now improving with antibiotic therapy. As he appears to be doing better at this point there is no indication for doing a flexible sigmoidoscopy in order to definitively make the diagnosis. Insufflation with air could possibly produce a perforation if this was inflamed diverticulitis. With his white count improving we will see how he does with MiraLAX over the evening time and possibly let this patient be discharged home tomorrow morning on oral antibiotics. Current Visit: Yes (2) Rectal bleeding Status: Acute Assessment and plan: While this could have been bleeding from a diverticulum or from hemorrhoids associated with the patient's mild diarrhea I suspect there may have been some ischemic colitis producing these changes described in the low sigmoid region. This would account for the patient's pain and elevated white blood cell count due to bacterial translocation as well as the blood in the stool with only a scant decrease in the patient's hematocrit. Patient does have diverticulosis incidentally. We know he is a vasculopath from calcification his vessels and his aortic aneurysm. I think he should be ready to go tomorrow morning. I did give him some MiraLAX to help flush his colon. Would suggest giving him enough antibiotics for another 6 days with Augmentin 875 mg twice daily and Flagyl 500 mg 3 times daily. Current Visit: Yes (3) Personal history of colonic polyps Status: Acute Assessment and plan: Patient had multiple tubular adenomas discovered through the colon and will need a repeat colonoscopy in January 2021. Current Visit: Yes (4) Diverticulosis of colon Status: Acute Assessment and plan: No need for treatment, doubt this is a significant source of bleeding if any. Current Visit: Yes Gastroenterology - PN: Subj Interval history: Patient is now eating solid food, he is passing some mucoid stools but no true bowel movements yet. He states that he said 6 meals that have been solid in the last day to 2 days. Left lower quadrant and periumbilical region still a bit tender today. Reviewed consultation from earlier in the admission on and CT scan results. White blood cell count has improved now into the normal range. Exam (Progress Note) - Constitutional Vitals: Period Temp Pulse Resp BP Sys/Avalos Pulse Ox Last 24 Hr 97.1 F-98.7 F 59-69 18-20 138-156/71-89 95-99 Results - Labs CBC & BMP: 01/21/17 05:13 01/19/17 05:13
[2017-01-21] MEDS: POLYETHYLENE GLYCOL POWDER 17 GM PACK PO SCH (21:05)
[2017-01-21] MEDS: ROSUVASTATIN 10 MG TABLET PO SCH (21:06)
[2017-01-22] MEDS: AMOXICILLIN/CLAV 875 MG TABLET PO SCH (01:40)
[2017-01-22 06:03] LABS: Basophils % 0.2 % (0.0-0.8); Eosinophils # 0.1 10*3/uL (0.0-0.87); Hematocrit 35.1 VOL% (42.0-52.0); Hemoglobin 11.2 GM/DL (14.0-18.0); Immature Granulocytes % 0.5 %; Immature Granulocytes Absolute 0.02 #; Lymphocytes # 0.7 10*3/uL (1.4-4.0); Lymphocytes % 15.7 % (21.2-54.2); Mean Corpuscular HGB Conc 31.9 GM/DL (32-36); Mean Corpuscular Hemoglobin 27 PG (27-34); Mean Corpuscular Volume 85.8 FL (87-102); Mean Platelet Volume 11.6 FL (9.6-12.0); Monocytes # 0.7 10*3/uL (0.11-0.8); Monocytes % 15.2 % (1.7-12.7); Neutrophils # 2.8 10*3/uL (1.4-7.4); Neutrophils % 65.4 % (38.7-73.9); Platelet Count 124 T/CUMM (130-400); Red Blood Count 4.09 MC/CUMM (3.8-5.5); Red Cell Distribution Width 14.3 % (9.3-17.3); White Blood Count 4.3 T/CUMM (4-12)
[2017-01-22 06:35] LABS: Calcium 8.4 MG/DL (8.5-10.1); Osmolality,Calculated 284.1 MOS/KG (273-304); Potassium 3.9 MMOL/L (3.5-5.1)
--- NOTE | 2017-01-22 07:05 | Gastrointestinal Progress Note ---
Assessment and Plan (1) Colitis Status: Acute Assessment and plan: This patient does have a history of diverticulosis discovered on colonoscopy approximately a year ago. His white blood cell count on admission was 11.9 with pain in the left lower quadrant and improvement to a white blood cell count of 6.2 with antibiotic therapy. There is been a low-grade bleed present. While this could be due to diverticular bleeding or colitis this may also have represented an ischemic colitis with bacterial translocation now improving with antibiotic therapy. As he appears to be doing better at this point there is no indication for doing a flexible sigmoidoscopy in order to definitively make the diagnosis. Insufflation with air could possibly produce a perforation if this was inflamed diverticulitis. With his white count improving we will see how he does with MiraLAX over the evening time and possibly let this patient be discharged home tomorrow morning on oral antibiotics. 01/22/17--the patient is doing better today with white blood cell count down from 6.2-->4.3 today. He can certainly be discharged today. 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 I do not think he should have any weight restrictions far as lifting. He should be on a low residue diet. He can follow-up with me in clinic as needed. He will need repeat colonoscopy in 4 more years, due to his history of polyps. I am going to sign off of his case at this point. I have written his antibiotics and of left these on the front of the chart--he will likely benefit from another 6 days of treatment with Augmentin and Flagyl. Current Visit: Yes (2) Rectal bleeding Status: Acute Assessment and plan: While this could have been bleeding from a diverticulum or from hemorrhoids associated with the patient's mild diarrhea I suspect there may have been some ischemic colitis producing these changes described in the low sigmoid region. This would account for the patient's pain and elevated white blood cell count due to bacterial translocation as well as the blood in the stool with only a scant decrease in the patient's hematocrit. Patient does have diverticulosis incidentally. We know he is a vasculopath from calcification his vessels and his aortic aneurysm. I think he should be ready to go tomorrow morning. I did give him some MiraLAX to help flush his colon. Would suggest giving him enough antibiotics for another 6 days with Augmentin 875 mg twice daily and Flagyl 500 mg 3 times daily. 01/22/17--The patient is only having specks of blood in his stool at this point. He has not had a bowel movement in the last day but will likely take some milk of magnesia when he gets home. The MiraLAX is working to slowly for him. Current Visit: Yes (3) Personal history of colonic polyps Status: Acute Assessment and plan: Patient had multiple tubular adenomas discovered through the colon and will need a repeat colonoscopy in January 2021. 01/22/17--Repeat colonoscopy in January 2021 as mentioned above. Current Visit: Yes (4) Diverticulosis of colon Status: Acute Assessment and plan: No need for treatment, doubt this is a significant source of bleeding if any. 01/22/17--as noted above. Okay for discharge today from a GI standpoint. Current Visit: Yes Gastroenterology - PN: Subj Interval history: Keshav's right lower quadrant pain has improved considerably. His white count is improved and his hematocrit is stable at 35%, he is only noticed specks of bleeding over the last several days. No bowel movement as a result of being given the MiraLAX yesterday. He states that he usually uses milk of magnesia at home. I expect that he can be discharged today as he is tolerating oral antibiotics and his white blood cell count is down further. Agree with a low residue diet for the present time. Exam (Progress Note) - Constitutional Vitals: Period Temp Pulse Resp BP Sys/Avalos Pulse Ox Last 24 Hr 96.6 F-98.2 F 60-77 18-20 138-158/73-97 94-97 General appearance: no acute distress - Head Head exam: Present: normocephalic, atraumatic - Eye Eye exam: Present: EOMI - Respiratory Respiratory exam: Present: other (The patient has some coarse breath sounds in the lower two thirds of the lungs but otherwise full respiratory excursion without wheezes or rales.) - Cardiovascular Cardiovascular exam: Present: regular rate and rhythm - GI/Abdominal GI/Abdominal exam: Present: normal bowel sounds, tenderness (Right lower quadrant on moderate palpation tender), soft. Absent: distended, guarding, rebound - Neurological Exam Neurological exam: Present: alert, oriented X3 - Psychiatric Psychiatric exam: Present: normal affect, normal mood - Skin Skin exam: Present: warm Results - Labs CBC & BMP: 01/22/17 05:08 01/22/17 05:08
[2017-01-22] MEDS: DIGOXIN 0.25 MG TABLET PO SCH (08:43)
[2017-01-22] MEDS: PANTOPRAZOLE 40 MG VIAL IV SCH (08:43)
[2017-01-22] MEDS: METOPROLOL SUCCINATE XL 50 MG TABLET PO SCH (08:43)
[2017-01-22] MEDS: METHENAMINE HIPPURATE 1 GM TABLET PO SCH (08:44)
[2017-01-22] MEDS: POLYETHYLENE GLYCOL POWDER 17 GM PACK PO SCH (08:44)
[2017-01-22] MEDS: HYDROCORTISONE 2.5% RECTAL CREAM 30 GM TUBE TOP SCH ×2 (08:44→13:29)
[2017-01-22] MEDS: metroNIDAZOLE 500 MG TABLET PO SCH (08:44)
[2017-01-22 11:03] VITALS: BP 151/86
--- NOTE | 2017-01-22 11:21 | Discharge Summary ---
<Mary Jane Milner - Last Filed: 01/22/17 13:41> Hospital Course - Hospital Course Hospital Course: Mr Gupta 81 y/o w/PMHx of Afib, CHF, CAD, RI, Pacemaker, Prostate Cancer, dyslipidemia, GERD, arthritis, chronic back, GI bleed, hemorrhoids, and ulcerative colitis presented to the ED as a transfer on 01/17/17 from [facility] for further evaluation of lower GI bleed with blood with BM, abdominal pain and nausea (hematocrit 43). In ED: H&H 13.4 & 43.3. Abd xray: scattered air-fluid levels; gastroenteritis. Hospitalist Services consulted for further evaluation and treatment. Admit on monitor bed, repeat H&H and monitor for need of transfusion, type and screen. Abd CT: suggest colitis/diverticulitis, bowel wall thickening. GI consulted for assistance with colitis/ diverticulitis. Stool checked for C-Diff and was negative. Stool positive for 4 + occult blood. Stool culture final negative growth. Urine culture negative growth at 24 hours. Patient continue to show improvement throughout hospitalization and H&H remained stable. Today 01/22/17 Patient continues to remain hemodynamically stable and feels better. He will be discharged home. He will need to follow up with his primary care physician 1-2 weeks. GI recommends and has written for 6 days of Augmentin and Flagyl by mouth and repeat colonscopy in January 2021. Further recommendations and discharge instructions to follow per Dr Lindsay. Discharge Plan - Discharge Data Disposition: Disch To Home/Self Care - Discharge Medications New [place]NIDAZ[place]LE TAB [Flagyl Cap/Tab] 500 mg PO TID tablet Amoxicillin/Clav Tab [Augmentin Tab] 875 mg PO Q12H tablet Continue Digoxin 0.5 tablet PO DAILY Nitroglycerin Sl Tab [Nitrostat] 0.4 mg SL Q5M PRN PRN Reason: Chest Pain Metoprolol Succinate Xl [Toprol Xl] 50 mg PO DAILY #30 tablet Rosuvastatin [Crestor] 10 mg PO BEDTIME Methenamine Mandelate 1 gm PO BID Pantoprazole Tab [Protonix Tab] 40 mg PO DAILY - Follow Up or Referral - Forms/Instructions Instructions: Pacemaker (DC), Acute Abdominal Pain (DC), Ileus (DC) Exam - Constitutional Vitals: Period Temp Pulse Resp BP Sys/Avalos Pulse Ox Last 24 Hr 96.6 F-98.2 F 67-77 18-20 141-158/76-97 94-96 Discharge Results Procedures and tests throughout hospitalization: Pending Orders 01/18/17 17:26 OCP [Parasitic Examination] Routine Occult Blood, Stool Routine 01/21/17 Urine Culture Routine Labs on day of discharge: Labs from last 24 hours 01/22/17 01/22/17 05:08 05:08 WBC 4.3 D RBC 4.09 Hgb 11.2 L Hct 35.1 L MCV 85.8 L MCH 27 MCHC 31.9 L RDW 14.3 Plt Count 124 L MPV 11.6 Neut % (Auto) 65.4 Lymph % (Auto) 15.7 L [place] % (Auto) 15.2 H Eos % (Auto) 3.0 Baso % (Auto) 0.2 Neut # (Auto) 2.8 Lymph # (Auto) 0.7 L [place] # (Auto) 0.7 Eos # (Auto) 0.1 Baso # (Auto) 0.0 Immature Gran % 0.5 Nucleated RBC % 0.0 Immature Gran # 0.02 Nucleated RBCs # 0.00 Immature Plt Fraction 0.0 Sodium 142 Potassium 3.9 Chloride 107 Carbon Dioxide 31 Anion Gap 7.9 BUN 17 Creatinine 1.00 GFR Calculation 86 BUN/Creatinine Ratio 17.00 Glucose 99 Calculated Osmolality 284.1 Calcium 8.4 L Preliminary micro results at discharge 01/21/17 Unknown Urine Culture - Preliminary Urine,Clean Catch No Growth at 24 hours. DS: Provider Date of admission: 01/17/17 22:55 Primary care physician: . No PCP Attending physician on admission: Delano Duffy MD Consults: 01/18/17 14:12 Consult to Physician [CONS] Routine Comment: abd pain Consulting Provider: Louis Oneal Person Notified: md padilla Date Notified: 01/18/17 Time Notified: 15:09 01/19/17 11:22 Consult to Physician [CONS] Routine Comment: Possible PM malfunction Consulting Provider: Consult to Specialist Group: Cardiology When should Consulting Provider be notified: Now Person Notified: Sofia Date Notified: 01/19/17 Time Notified: 11:25 Consult Notification Comment: Dr. Amato aware. [id number] Discharging clinician: Mary Jane Milner NP <Paola Lindsay - Last Filed: 01/22/17 14:28> Discharge Plan - Discharge Data Condition at Discharge: Stable Discharge Diet: advance to your usual diet Activity: resume usual activities as tolerated (come back to the ER if you have blood in your stools or severe belly pain), increase activity as tolerated Exam - Constitutional General appearance: normal weight - Head Head exam: Present: normal inspection - Respiratory Respiratory exam: Present: clear to auscultation bilaterally - Cardiovascular Cardiovascular exam: Present: regular rate and rhythm - GI/Abdominal GI/Abdominal exam: Present: normal bowel sounds, tenderness (LLQ tenderness without rebound or guarding), soft. Absent: guarding, rebound - Extremities Exam Extremities exam: Present: full ROM. Absent: edema - Neurological Exam Neurological exam: Present: alert, oriented X3 - Psychiatric Psychiatric exam: Present: normal affect, normal mood Discharge Results - Impressions Patient seen and examined. He is hemodynamically and clinically stable. He is safe for discharge. I have read the discharge summary by ALESSANDRO Milner, and I agree with the documentation. Active Issues: 1. Acute abdominal pain: improving; no peritoneal signs on exam; okay to discharge home per GI 2. Colitis vs diverticulitis: no leukocytosis and afebrile. Will discharge on 6 more days of flagyl and augmentin per GI 3. Rectal bleed: Followed by GI. likely 2nd to diverticular disease. CT showed diverticulosis. H/H has been stable. He knows to come back to the ER if recurrent bleeding occurs 4. H/o polyp: repeat colonoscopy in 2020. 5. HTN: bp fairly controlled 6. h/o ASCAD: stable; continue home regimen; will hold on aspirin until seen by PCM 7. Disposition: discharge today with follow up with PCM in 2 weeks
== END 2017-01-22 15:23 | disposition home or self-care (01) | DRG 391 ==
LOC: EDBD → EDUNIT# → N.ED 20:18 → SUATTDRO 22:55 → N.EDINP 22:55 → N.5E 23:41
PROVIDERS: ADMIT Internal Medicine; ATTEND Internal Medicine